=== PATIENT | male | born 1975 | race Caucasian/White ===

== ENCOUNTER 2017-10-27 18:58 | Emergency (ER) | payer OTHER ==
[~2017-10-27] VITALS: Ht 180.3 cm; Wt 83.0 kg
[2017-10-27] MEDS ORDERED: CEPH500 PO (19:53)
[2017-10-27] MEDS ORDERED: Percocet 5-3251 EACH PO (19:53)
== END 2017-10-27 20:35 | disposition home or self-care (01) ==
LOC: ER 18:58
DX: S61.211A Laceration without foreign body of left index finger without damage to nail, initial encounter (principal); Z87.891 Personal history of nicotine dependence; Z23 Encounter for immunization; W22.8XXA Striking against or struck by other objects, initial encounter
CPT/HCPCS: 12002; 73140; 90471; 90714; 96372; 99283; J0690; J7030

== ENCOUNTER 2022-05-01 19:45 | Emergency (ER) | payer OTHER ==
[~2022-05-01] VITALS: Ht 180.3 cm; Wt 95.2 kg
[~2022-05-01 19:45] MED LIST: CEPH500 PO; Percocet 5-3251 EACH PO
== END 2022-05-02 00:55 | disposition home or self-care (01) ==
LOC: ER 19:45
DX: T15.01XA Foreign body in cornea, right eye, initial encounter (principal); F17.210 Nicotine dependence, cigarettes, uncomplicated
CPT/HCPCS: A9270

== ENCOUNTER 2022-11-01 14:36 | Emergency (ER) | payer OTHER ==
[~2022-11-01] VITALS: Ht 180.3 cm; Wt 97.5 kg
[2022-11-01 14:45] VITALS: BP 147/76
== END 2022-11-01 17:37 | disposition home or self-care (01) ==
LOC: ER 14:36
DX: H57.12 Ocular pain, left eye (principal); F17.210 Nicotine dependence, cigarettes, uncomplicated
CPT/HCPCS: 99283; A9270